=== PATIENT | female | born 1995 | race Two or more races ===

== ENCOUNTER 2024-06-12 16:40 | Inpatient (IN) | payer BC, OTHER ==
[~2024-06-12] VITALS: Ht 162.6 cm; Wt 63.6 kg
[2024-06-12 17:47] LABS: Urine Bacteria None Seen /hpf (None Seen)
[2024-06-12 18:00] LABS: Basophils # (auto) 0.1 10 ^3/uL (0-0.2); Basophils % (auto) 0.7 % (0.0-2.0); Eosinophils # (auto) 0 10 ^3/uL (0-0.8); Eosinophils % (auto) 0.6 % (0.0-7.0); Hematocrit 34.8 % (36.0-46.0); Hemoglobin 11.9 g/dL (12.2-16.2); Lymphocytes # (auto) 1.1 10 ^3/uL (0.4-5.4); Lymphocytes % (auto) 13.4 % (10.0-50.0); Mean Corpuscular Hemoglobin 32.4 pg (28.0-32.0); Mean Corpuscular Hgb Conc. 34.2 g/dL (32.0-36.0); Mean Corpuscular Volume 94.9 fL (80.0-100.0); Monocytes # (auto) 0.5 10 ^3/uL (0-1.3); Monocytes % (auto) 6.3 % (0.0-12.0); Neutrophils # (auto) 6.6 10 ^3/uL (1.6-8.6); Nucleated Red Blood Cells % 0.1 %; Platelet Count (auto) 281 10^3/uL (140-450); Red Blood Cells 3.67 10^6/uL (4.0-5.20); Red Cell Distribution Width 12.7 % (11.8-14.3); White Blood Cell 8.3 10^3/uL (4.4-10.8)
[2024-06-12 18:16] LABS: Urine Blood Negative /uL (Negative); Urine Clarity Clear (Clear); Urine Color Light-Yellow (Yellow); Urine Mucus FEW (None Seen); Urine Protein, UAD Negative (Negative); Urine Urobilinogen Normal (Negative); Urine WBC 3 /hpf (0 - 5)
[2024-06-12 18:16] LABS: Alanine Aminotransferase 18 U/L (7-40); Albumin 4.6 g/dL (3.2-4.8); Alkaline Phosphatase 91 U/L (46-116); Anion Gap 9 (5-15); Aspartate Aminotransferase 17 U/L (13-40); BUN/Creatinine Ratio 18.8 (10.0-20.0); Bilirubin, Total 0.7 mg/dL (0.2-1.0); Blood Urea Nitrogen 15 mg/dL (9-23); Calcium 9.9 mg/dL (8.7-10.4); Carbon Dioxide 24 mmol/L (20-31); Chloride 102 mmol/L (98-107); Potassium 4.1 mmol/L (3.5-5.1)
[2024-06-12 18:19] LABS: Glucose 122 mg/dL (74-106); Sodium 135 mmol/L (136-145)
[2024-06-12 18:29] LABS: Lipase 35 U/L (12-53)
--- NOTE | 2024-06-12 18:52 | ED.PDOC ---
History of Present Illness HPI Comments 29-year-old female who came to ER for rectal pain. Patient does have history of thyroid disease. States at about midnight last night, she started having rectal pain, described as cramping. States she feels nauseated, but denies any vomiting, diarrhea, constipation, or passage of blood. Patient is also complaining of right-sided chest pains described as sharp, intermittent, radiating to her right shoulder and lower ribcage, worsens laying down (during EKG). Patient also states she passed out 5 times earlier today. Chief Complaint: Rectal pain Time Seen by MD: 18:51 Primary Care Provider: CHRISTIANE Reviewed Notes: Nurses Notes Allergies: Coded Allergies: NO KNOWN ALLERGIES (Unverified , 06/12/24) Home Meds Active Scripts Hydrocodone-Acetaminophen (Hydrocodone Bitartrate/AC 5-325 mg) 1 Tab Tab, 1 TAB PO Q6HP PRN, #20 TAB Prov:BUZZ DEL ROSARIO DO 06/13/24 Reported Medications Levothyroxine Sodium (Levothyroxine Sodium) 100 Mcg Tab, 1 TAB PO DAILY 06/13/24 Doxepin Hcl (Doxepin Hcl) 150 Mg Cap, 1 CAP PO DAILY for anxiety 06/13/24 Doxepin Hcl (Doxepin Hcl) 25 Mg Cap, 2 CAP PO DAILY for anxiety 06/13/24 Information Source: Patient Mode of Arrival: Ambulatory Severity: Moderate Timing: Hours Duration: Since onset Prehospital treatment: None Medication Refill: For: Other Review of Systems: REVIEW OF SYSTEMS: No fever, no chills, or fatigue HEENT: No sore throat, no earache, no congestion, no neck pain. Cardiac: (+) chest pain. No palpitations. Lungs: No shortness of breath, no cough. GI: No nausea, no vomiting, no diarrhea, no constipation, no abdominal pain, (+) rectal pain : No dysuria, frequency, or urgency. No hematuria. Musculoskeletal: No joint pain , no joint swelling, no extremity edema. Skin: No rash, no itching. Neuro: No headache, no dizziness, no weakness Vital Signs Vital Signs Date Time Temp Pulse Resp B/P (MAP) Pulse Ox O2 Delivery O2 Flow Rate FiO2 06/12/24 18:00 109 06/12/24 17:53 97.4 16 121/74 (90) 98 Physical Exam General: Awake, alert and oriented. No acute distress. Skin: Skin in warm, dry and intact. Appropriate color for ethnicity. Nailbeds pink with no cyanosis. HEENT: The head is normocephalic and atraumatic. Conjunctivae are clear without exudates or hemorrhage. Sclera is non-icteric. EOM are intact. No signs of nystagmus. Eyelids are normal in appearance without swelling or lesions. Oral mucosa is pink and moist Neck: The neck is supple with normal range of motion. No JVD. Cardiac: Heart rate and rhythm are normal. No murmurs, gallops, or rubs are auscultated. Respiratory: No signs of respiratory distress. Lung sounds are clear in all lobes bilaterally without rales, ronchi, or wheezes. Abdominal: Abdomen is soft, non-tender without distention. Bowel sounds are present and normoactive in all four quadrants. Extremities: Upper and lower extremities are atraumatic in appearance without deformity or edema. Neurological: The patient is awake, alert and oriented to person, place, and time with normal speech. Speech is clear. There is no facial asymmetry. Psychiatric: Appropriate mood and affect. Good judgement and insight. No visual or auditory hallucinations. Past Medical History PAST MEDICAL HISTORY: Thyroid Surgical History: Denies all surgeries CREATIVE SERVICES COORDINATOR History: Denies all CREATIVE SERVICES COORDINATOR Hx Family History Family History: Reviewed,noncontributory to illness Social History Smoker: Non-Smoker Alcohol: Denies ETOH Use Drugs: Denies Drug Use Lives In: Home Was a procedure done? Was a procedure done?: No Differential Dx Considerations may include: Hemorrhoids, anal fissure, constipation, musculoskeletal chest pain, costochondritis, angina, coronary artery disease X-Ray, Labs, Meds, VS Vital Signs Date Time Temp Pulse Resp B/P (MAP) Pulse Ox O2 Delivery O2 Flow Rate FiO2 06/12/24 18:00 109 06/12/24 17:53 97.4 124 16 121/74 (90) 98 Lab Test 06/12/24 20:00 06/12/24 17:49 06/12/24 17:46 Range/Units Troponin I High Sensitivity < 3 L < 3 L </=34 ng/L White Blood Count 8.3 4.4-10.8 10^3/uL Red Blood Count 3.67 L 4.0-5.20 10^6/uL Hemoglobin 11.9 L 12.2-16.2 g/dL Hematocrit 34.8 L 36.0-46.0 % Mean Corpuscular Volume 94.9 80.0-100.0 fL Mean Corpuscular Hemoglobin 32.4 H 28.0-32.0 pg Mean Corpuscular Hemoglobin Concent 34.2 32.0-36.0 g/dL Red Cell Distribution Width 12.7 11.8-14.3 % Platelet Count 281 140-450 10^3/uL Mean Platelet Volume 9.1 6.9-10.8 fL Neutrophils (%) (Auto) 79.0 37.0-80.0 % Lymphocytes (%) (Auto) 13.4 10.0-50.0 % Monocytes (%) (Auto) 6.3 0.0-12.0 % Eosinophils (%) (Auto) 0.6 0.0-7.0 % Basophils (%) (Auto) 0.7 0.0-2.0 % Neutrophils # (Auto) 6.6 1.6-8.6 10 ^3/uL Lymphocytes # (Auto) 1.1 0.4-5.4 10 ^3/uL Monocytes # (Auto) 0.5 0-1.3 10 ^3/uL Eosinophils # (Auto) 0 0-0.8 10 ^3/uL Basophils # (Auto) 0.1 0-0.2 10 ^3/uL Nucleated Red Blood Cells 0.1 % Sodium Level 135 L 136-145 mmol/L Potassium Level 4.1 3.5-5.1 mmol/L Chloride Level 102 98-107 mmol/L Carbon Dioxide Level 24 20-31 mmol/L Anion Gap 9 5-15 Blood Urea Nitrogen 15 9-23 mg/dL Creatinine 0.80 0.550-1.02 mg/dL Glomerular Filtration Rate Calc 102 >90 mL/min BUN/Creatinine Ratio 18.8 10.0-20.0 Serum Glucose 122 H 74-106 mg/dL Lactic Acid Level 1.8 0.4-2.0 mmol/L Calcium Level 9.9 8.7-10.4 mg/dL Total Bilirubin 0.7 0.2-1.0 mg/dL Aspartate Amino Transferase (AST) 17 13-40 U/L Alanine Aminotransferase (ALT) 18 7-40 U/L Alkaline Phosphatase 91 46-116 U/L Total Protein 7.0 5.7-8.2 g/dL Albumin 4.6 3.2-4.8 g/dL Lipase 35 12-53 U/L Beta HCG, Quantitative 15.5 H 1.5-4.2 mIU/mL Urine Color Light-yellow Yellow Urine Clarity Clear Clear Urine pH 6.0 5.0-9.0 Urine Specific [place] 1.010 1.001-1.035 Urine Protein Negative Negative Urine Ketones Negative Negative Urine Blood Negative Negative /uL Urine Nitrite Negative Negative Urine Bilirubin Negative Negative Urine Urobilinogen Normal Negative mg/dL Urine Leukocyte Esterase Negative Negative /uL Urine RBC 4 0 - 4 /hpf Urine WBC 3 0 - 5 /hpf Urine Squamous Epithelial Cells Few <5 /hpf Urine Bacteria None seen None Seen /hpf Urine Mucus Few None Seen Urine Glucose Normal Normal mg/dL Chlamydia trachomatis (MANUELA) Pending Neisseria gonorrhoeae (MANUELA) Pending OB ULTRASOUND <14 WEEKS: HISTORY: Pelvic pain, positive TECHNIQUE: Multiple real-time grayscale sonographic images of the pelvis with duplex Doppler color flow, spectral and M-mode analysis. TRANSDUCERS: Transabdominal FINDINGS: The uterus measures 6.49 x 4.32 x 3.56 cm. Endometrial canal measures 7.58 mm. There is fluid in the cul-de-sac. Right ovary measures 3.7 x 3.6 x 4.5 cm right ovarian volume is 32.52 cc. with normal Doppler color flow Left ovary measures 2.6 x 1.7 x 2.9 cm. Volume of the left ovary is 6.78 cc. with normal Doppler color flow No IUP is seen. There appears to be a large amount of free fluid and debris in the cul-de-sac and right upper quadrant. There is a vascular structure adjacent to the right ovary can not exclude ectopic. IMPRESSION: 1. No IUP. 2. Large amount of fluid in the right adnexa with debris. 3. There is a prominent vascular echogenic structure adjacent to the right ovary. Can not exclude ectopic . ATED BY: DIDIER CROUCH Jr., DO DICTATED DATE/TIME: 06/12/242010 SIGNED BY: PETRUZZO, DIDIER T Jr., DO SIGNED DATE/TIME: 06/12/242010 CC: Time of 1ST Reevaluation: 18:46 Reevaluation 1ST: Unchanged Patient Education/Counseling: Diagnosis, Treatment Family Education/Counseling: Diagnosis, Treatment Departure 1 Departure Time of Disposition: 20:31 Impression: Primary Impression: Hemoperitoneum Additional Impressions: Pelvic pain Elevated serum hCG Disposition: ADMITTED INPATIENT Condition: Stable e-Prescriptions Hydrocodone-Acetaminophen (Hydrocodone Bitartrate/AC 5-325 mg) 1 Tab Tab 1 TAB PO Q6HP PRN, #20 TAB Prov: BUZZ DEL ROSARIO DO 06/13/24 Comments 29-year-old female who presents to the emergency department with rectal pain. Ultrasound suggestive of possible ruptured ectopic with hemoperitoneum . Patient is stable during the ED observation. Taken to OR by Dr. Del Rosario for further evaluation and treatment. 1955: Discussed with Dr. Del Rosario possible ruptured right ectopic on ultrasound. Recommendation is follow up official ultrasound report. Keep Patient NPO. 2030: Discussed US findings with Dr. Del Rosario he will see patient in ED. Extensive evaluation was performed in attempt to identify or rule out: (See differential diagnosis section) The following tests were ordered, and results were reviewed by me: (See diagnostic results section) The following test were independently interpreted by me: N/A I reviewed and agreed with the following test results read by other providers: N/A I reviewed the following notes from the pt's past medical encounters: (None available at this time) Additional information was gathered from interviewing the following independent historians: Patient's significant other at bedside Discussion of management or test interpretation with external physician/other qualified health nurse healthcare manager: Dr. Del Rosario Decision regarding hospitalization or escalation of hospital level of care: Risk and benefits of admission for further treatment of patient's condition was considered. Due to patient's current clinical condition, high risk of decline and poor outcome if discharged and need for further inpatient management and monitoring, patient will be admitted to the hospital. Drug therapy requiring intensive monitoring for toxicity: N/A Parenteral controlled substances: IV Morphine Decision regarding elective major surgery with identified patient or procedure risk factors: N/A Decision regarding emergency major surgery: N/A Decision not to resuscitate or to de-escalate care because of poor prognosis: N/A Critical Care Note Critical Care Time?: Yes (30 min-critical care time only) Critical care comment: Due to a high probability of clinically significant, life threatening deterioration, the patient required my highest level of preparedness to intervene emergently and I personally spent this critical care time directly and personally managing the patient. This critical care time included obtaining a history; examining the patient; pulse oximetry; ordering and review of studies; arranging urgent treatment with development of a management plan; evaluation of patient's response to treatment; frequent reassessment; and, discussions with other providers. This critical care time was performed to assess and manage the high probability of imminent, life-threatening deterioration that could result in multi-organ failure. It was exclusive of separately billable procedures and treating other patients and teaching time. Please see my other sections and the rest of the note for further information on patient assessment and treatment. Stability Stability form required: No Heart Score Heart Score: Heart Score Response (Comments) Value History N/A 0 EKG N/A 0 Age N/A 0 Risk Factors N/A 0 Troponin N/A 0 Total 0 I personally scribed for ANANDA DURON MD ([email or web address]) on 06/12/24 at 18:52. Electronically submitted by Carlos Eduardo Avendaño ([email or web address]). ANANDA DURON MD Jun 12, 2024 18:52
[2024-06-12] MEDS ORDERED: ACETAMINOPHEN 325 MG TAB PO ONE (19:00)
[2024-06-12] MEDS ORDERED: SODIUM CHLORIDE 0.9% 1,000 ML IV ONE (20:00)
--- NOTE | 2024-06-12 20:14 | DVH ---
OB ULTRASOUND <14 WEEKS: HISTORY: Pelvic pain, positive TECHNIQUE: Multiple real-time grayscale sonographic images of the pelvis with duplex Doppler color f low, spectral and M-mode analysis. TRANSDUCERS: Transabdominal FINDINGS: The uterus measures 6.49 x 4.32 x 3.56 cm. Endometrial canal measures 7.58 mm. There is fluid in the cul-de-sac. Right ovary measures 3.7 x 3.6 x 4.5 cm right ovarian volume is 32.52 cc. with normal Doppler color f low Left ovary measures 2.6 x 1.7 x 2.9 cm. Volume of the left ovary is 6.78 cc. with normal Doppler colo r flow No IUP is seen. There appears to be a large amount of free fluid and debris in the cul-de-sac and rig ht upper quadrant. There is a vascular structure adjacent to the right ovary can not exclude ectopic. IMPRESSION: 1. No IUP. 2. Large amount of fluid in the right adnexa with debris. 3. There is a prominent vascular echogenic structure adjacent to the right ovary. Can not exclude ect opic .
[2024-06-12] MEDS ORDERED: ONDANSETRON HCL 4 MG/2 ML VIAL IV ONE ×2 (20:45→21:45)
[2024-06-12] MEDS ORDERED: MORPHINE SULFATE INJ 2 MG/ml SYRG IV ONE (20:45)
[2024-06-12] MEDS ORDERED: LACTATED RINGER'S 1,000 ML IV SCH (20:45)
[2024-06-12] MEDS ORDERED: ceFAZolin 2 GM/D5W50ml 50 ML IV ONE (20:45)
--- NOTE | 2024-06-12 21:32 | DVHHP2 ---
FISH RECEIVER CC & HPI Date Date of Admission: Jun 12, 2024 Chief Complaints: Reason for admission: Acute pelvic pain, suspected ruptured ectopic History of Present Complaints History of Present Complaints 29y G2Po TAB1 LMP 05/17/24 EGA 3w5d Admitted via ER with acute pelvic pain, rectal pain and shoulder pain x 24 hr. Endorses syncope several times today. Denies N/V fever Complains of rectal pain, denies rectal bleeding, constipation. Patient had HCG+ in ER (HCG quant 15) but pelvic US reveals moderate free fluid and right adnexal mass suspicious for ectopic Past Medical History Cardiac: No pertinent Hx Pulmonary: No pertinent Hx Central Nervous System: No pertinent Hx GI: No pertinent Hx Hemotology/Oncology: No pertinent Hx Hepatobiliary: No pertinent Hx Psychiatric: No pertinent Hx Musculoskeletal: No pertinent Hx Rheumotologic: No pertinent Hx Infectious Disease: No peritnent Hx ENT: No pertinent Hx Renal/: No pertinent Hx Endocrine: Hypothyroidism Dermatology: No pertinent Hx Others Anxiety, depression Past Surgical History: No pertinent Hx FISH RECEIVER History FISH RECEIVER History FISH RECEIVER History: Last PAP > x 5 yr ago Denies history of STI, denies history of Abnormal PAP Sexually active, Monogamous x 2 years Allergies: Coded Allergies: NO KNOWN ALLERGIES (Unverified , 06/12/24) Current Medications Current Medications Medications (Trade) Dose Ordered Sig/Jaclyn Route PRN Reason Start Time Stop Time Status Last Admin Lactated Ringer's 1,000 ml @ 125 mls/hr Q8H IV 06/12/24 20:45 Social History Denies EtOH, Drug use or tobacco use Review of Systems Constitutional: Weakness Ears, Nose, & Throat: No symptom reported Eyes: No symptom reported Pulmonary/Respiratory: Pleuritic Chest Pain Cardiovascular: Lt [place] Gastrointestinal: Abdominal Pain Genitourinary: No symptom reported Musculoskeletal: No symptom reported Skin: No symptom reported Psychiatric: No symptom reported Endocrine: No symptom reported Hemotologic/Lymphatic: No symptom reported All Other Systems Neuro: + Syncope Physical Exam Physical Exam Vitals: Vital Signs Date Time Temp Pulse Resp B/P (MAP) Pulse Ox O2 Delivery O2 Flow Rate FiO2 06/12/24 18:00 109 06/12/24 17:53 97.4 16 121/74 (90) 98 HEENT: NCAT Heart: Rhythm Normal Lungs: Clear Abdomen: Soft Extremities: Normal Reflexes: Normal Parking Cashier/Pelvic Exam: Not done Assessment and Plan Plan Assessment and Plan: 1. Acute abdominal pain with moderate hemoperitoneum seen on US 2. Suspected ruptured ectopic vs hemorrhagic ovarian cyst Plan: Operative laparoscopy, removal of ectopic , possible unilateral (left vs right) salpingectomy vs salpingo-oophorectomy, possible laparotomy, evacuation of hemoperitoneum Patient does not want to disrupt a potential "normal " declined D&C procedure. Risks of pain, scar , bleeding, infection, possible blood transfusion. Risks of possible injury to bowel, bladder, vessels, adjacent organs all discussed with patient and informed consent obtained. Date of Service: Jun 12, 2024 Billing Provider: BUZZ DEL ROSARIO DO Common Visit Codes: [id number] INP/OBS CARE(HIGH) BUZZ DEL ROSARIO DO Jun 12, 2024 21:32
[2024-06-12] MEDS ORDERED: SUCCINYLCHOLINE CHLORIDE 20 MG/ML 10ML VIAL IV ONE (21:36)
[2024-06-12] MEDS ORDERED: fentaNYL CITRATE 100 MCG/2 ML VL ONE (21:36)
[2024-06-12] MEDS ORDERED: MIDAZOLAM HCL 2MG/2ML 2ml VIAL (1mg/ml) ONE (21:37)
[2024-06-12] MEDS ORDERED: ONDANSETRON HCL 4 MG/2 ML VIAL ONE (21:37)
[2024-06-12] MEDS ORDERED: DexAMETHasone SOD PHOS 10MG/1ML VIAL INJ ONE (21:37)
[2024-06-12] MEDS ORDERED: PROPOFOL 10 MG/ML 20 ML IV ONE (21:37)
[2024-06-12] MEDS ORDERED: ROCURONIUM 10MG/ML 10ML VIAL IV ONE (21:37)
[2024-06-12] MEDS ORDERED: LIDOCAINE 2% (LOCAL ANESTH.) PF 5ml SDV ONE (21:39)
[2024-06-12] MEDS ORDERED: fentaNYL CITRATE 100 MCG/2 ML VL IV PRN (21:45)
[2024-06-12] MEDS ORDERED: HYDROmorphone HCL 2 MG/ML VL/or syr IV PRN (21:45)
[2024-06-12 21:55] VITALS: PULSE 132; RESP 20; O2SAT 99
[2024-06-12] MEDS ORDERED: ceFAZolin 2 GM/D5W100ml 100 ML IV ONE (22:05)
[2024-06-12] MEDS ORDERED: HYDROmorphone HCL 2 MG/ML VL/or syr ONE (23:38)
[2024-06-12] MEDS ORDERED: SUGAMMADEX 200mg/2ml Vial (100MG/ML) IV ONE (23:47)
[2024-06-12] MEDS: LIDOCAINE W/ EPINEPHRINE 1% 20ML VIAL ONE (23:49)
[2024-06-13 00:26] VITALS: PULSE 109; RESP 8; O2SAT 100
[2024-06-13] MEDS ORDERED: IBUPROFEN 600 MG TAB PO PRN (00:30)
[2024-06-13] MEDS ORDERED: ONDANSETRON ODT 4 MG TAB PO PRN (00:30)
--- NOTE | 2024-06-13 01:14 | DVHOP ---
DATE OF SURGERY: 06/13/2024 PREOPERATIVE DIAGNOSES: * Acute abdominal pain with hemoperitoneum. * Suspected ruptured ovarian cyst versus ectopic . FINAL DIAGNOSES: * Acute abdominal pain with hemoperitoneum. * Ruptured hemorrhagic corpus luteal cyst of the right ovary. SURGEON: Adan Melchor DO WIRE SETTER: Darin Veronica NP ANESTHESIOLOGIST: Brijesh Henriquez CRNA. PROCEDURES PERFORMED: Pelvic exam under anesthesia, operative laparoscopy, right ovarian cystectomy, evacuation of hemoperitoneum. DESCRIPTION OF FINDINGS: A normal-sized uterus, normal bilateral fallopian tubes and normal left ovary. The right ovary contained a 3 cm ruptured ovarian cyst with clot. There was approximately 400-500 mL of hemoperitoneum in the pelvis and up to the right upper quadrant above the liver. There was an adherent blood clot to the right ovary. There was no definite ectopic . Normal bowel and intra-abdominal organs otherwise. TECHNICAL PROCEDURE: After informed consent was obtained, the patient was taken to the operating room where she underwent smooth induction with general anesthesia. The patient was placed in the dorsal lithotomy position in Robert stirrups. The vagina, perineum and abdomen were thoroughly prepped, and the patient sterilely draped in usual fashion. A pelvic exam was then performed under anesthesia with the above-noted findings. A weighted speculum was placed in the patient's vagina. The anterior lip of the cervix was grasped with a single tooth tenaculum. A small acorn uterine manipulator was placed just at the endocervix and attached to the tenaculum externally to manipulate the uterus. The uterine cavity was not entered. A transurethral Nath was then placed. Next, all instrumentation was removed from the patient's vagina. Attention was then placed to the abdomen, where a 5 mm vertical incision was made at the base of the umbilicus. The abdominal wall was tented and a Veress needle introduced in usual fashion. Intraperitoneal placement was confirmed by aspiration and by the hanging water drop test. Carbon dioxide gas was infused and pneumoperitoneum obtained. A 5 mm Optiview trocar was then used to place in umbilical port under direct visualization. Intraperitoneal placement was confirmed directly with the laparoscope. A 12 mm port was inserted to the left of midline under direct visualization and a 5 mm port was inserted to the right of midline under direct visualization. These entries were atraumatic. Survey of the abdomen and pelvis revealed the above-noted findings. There was a moderate amount of hemoperitoneum in the pelvis and extending all the way to the right upper quadrant, up to the liver and under the diaphragm. Using a suction device, all the blood and hemoperitoneum was evacuated. Approximately 350 mL were collected plus organized blood clots. The bilateral fallopian tubes and ovaries were inspected with the above-noted findings. The right ovary contained an actively bleeding cyst. This was removed with blunt dissection and a cystectomy performed. The cyst wall was placed into an EndoCatch bag and retrieved. The specimen was submitted to pathology. The ovary was then cauterized with monopolar cautery to obtain hemostasis. Next, the abdomen was thoroughly irrigated with sterile saline. All the fluid and blood was suctioned from the patient's abdomen. I then placed Surgiflo over the right ovary for added hemostasis. The intra-abdominal pressures were reduced. The ovary was inspected and hemostasis was confirmed. No active bleeding noted. At this point, I proceeded to close the 12 mm fascial defect in the left lower quadrant using the Michael-Corby device. A suture of 0 Vicryl was used to approximate the fascia. This was airtight and following this, the additional 5 mm trocars were removed under visualization. The pneumoperitoneum was all removed, then proceeded to close the skin incisions with 3-0 Monocryl in subcuticular fashion. The three skin incisions were injected with 1% lidocaine with epinephrine, approximately 20 mL of local anesthetic were used. The skin incisions were then covered with Dermabond. The transurethral Nath was removed and the cervical manipulator was removed with no vaginal bleeding noted. The patient was taken out of lithotomy position, awakened, and taken to recovery room in stable condition. INTRAOPERATIVE COMPLICATIONS: None. ESTIMATED BLOOD LOSS: Less than 15 mL plus approximately 500 mL of hemoperitoneum. POSTOPERATIVE CONDITION: Stable. SPECIMENS: Right ovarian cyst. MEDICATION: The patient received 2 grams of Ancef prior to skin incision. Adan Melchor DO CG/ANDREA TID: [id number] RECEIPT: [id number] MTDD
[2024-06-13 02:00] VITALS: BP 110/73; PULSE 98; RESP 20; TEMP 98.5; O2SAT 98
[2024-06-13 02:39] LABS: Basophils # (auto) 0 10 ^3/uL (0-0.2); Basophils % (auto) 0.2 % (0.0-2.0); Eosinophils # (auto) 0 10 ^3/uL (0-0.8); Hematocrit 30.2 % (36.0-46.0); Hemoglobin 10.2 g/dL (12.2-16.2); Lymphocytes # (auto) 0.4 10 ^3/uL (0.4-5.4); Lymphocytes % (auto) 4.2 % (10.0-50.0); Mean Corpuscular Hgb Conc. 33.6 g/dL (32.0-36.0); Mean Corpuscular Volume 95.3 fL (80.0-100.0); Monocytes # (auto) 0.1 10 ^3/uL (0-1.3); Neutrophils # (auto) 8.4 10 ^3/uL (1.6-8.6); Neutrophils % (auto) 94.6 % (37.0-80.0); Platelet Count (auto) 197 10^3/uL (140-450); Red Blood Cells 3.17 10^6/uL (4.0-5.20); Red Cell Distribution Width 12.5 % (11.8-14.3); White Blood Cell 8.9 10^3/uL (4.4-10.8)
[2024-06-13] MEDS: ACETAMINOPHEN 325 MG TAB PO PRN (02:52)
[2024-06-13] MEDS ORDERED: DOXE25CA2 PO (03:01)
[2024-06-13] MEDS ORDERED: [UNRECOGNIZED DRUG - CODE] PO (03:01)
[2024-06-13] MEDS ORDERED: LEVO100T8 PO (03:01)
[2024-06-13 05:00] VITALS: BP 105/72; PULSE 111; RESP 20; TEMP 98.4; O2SAT 98
--- NOTE | 2024-06-13 07:07 | ECG ---
[facility] Test Date: 2024-06-12 Test Time: 17:42:26 Pat Name: JUVENTION KAN PETRONADepartment: ER Room: 0217 Gender: F Sort Line Worker: NICK : [id number] Requested By: ZULMA PRYOR Order Number: [id number] Reading MD: Measurements Intervals [place] Rate: 109 P: 67 MN: 109 QRS: 39 QRSD: 80 T: 57 QT: 315 QTc: 425 Interpretive Statements Sinus tachycardia with irregular rate Please click the below link to view image of tracing.
[2024-06-13] MEDS: HYDROcodone-ACET 10/325MG TAB PO PRN (08:06)
[2024-06-13] MEDS ORDERED: HYDR-4902 PO (08:28)
--- NOTE | 2024-06-13 08:33 | DVHDS2 ---
Physician Discharge Progress N Final Diagnosis: ruptured rt ovarian cyst with hemoperitoneum, early Operations or Procedures: Operations or Procedures Laparoscopy evacuation of hemoperitoneum rt ovarian cystectomy Condition on Discharge: Stable Disposition: Home Discharge Instructions: Diet: Regular Activity: Light activity Follow Up/Referral: [address] Del Rosario Medications: [place] 5mg pRN pain Follow Up Care: Discharge Statement: "Patient was advised to return to the ER or call 911 if any headaches, dizziness, shortness of breath, chest pain, abdominal pain, bleeding, fevers, or worsening of medical condition. Patient was counseled about treatment plan, medications, possible side effects, patientverbalized understanding. All questions were answered to the best of my ability. This discharge took greater then 30 minutes in planning, reviewing documentation, counseling the patient, and discussing with other team members." BUZZ DEL ROSARIO DO Jun 13, 2024 08:33
[2024-06-13 08:54] LABS: Basophils # (auto) 0 10 ^3/uL (0-0.2); Eosinophils # (auto) 0 10 ^3/uL (0-0.8); Hematocrit 30.5 % (36.0-46.0); Hemoglobin 10.5 g/dL (12.2-16.2); Lymphocytes # (auto) 0.3 10 ^3/uL (0.4-5.4); Lymphocytes % (auto) 3.3 % (10.0-50.0); Mean Corpuscular Hemoglobin 32.9 pg (28.0-32.0); Mean Corpuscular Hgb Conc. 34.5 g/dL (32.0-36.0); Mean Corpuscular Volume 95.5 fL (80.0-100.0); Monocytes # (auto) 0.2 10 ^3/uL (0-1.3); Neutrophils # (auto) 9.7 10 ^3/uL (1.6-8.6); Neutrophils % (auto) 94.7 % (37.0-80.0); Platelet Count (auto) 216 10^3/uL (140-450); Red Cell Distribution Width 12.5 % (11.8-14.3); White Blood Cell 10.3 10^3/uL (4.4-10.8)
[2024-06-13 09:00] VITALS: BP 100/87; PULSE 113; TEMP 98.7; O2SAT 20
[2024-06-13 11:35] VITALS: BP 100/87; PULSE 97; RESP 20; TEMP 98.7; O2SAT 97
[2024-06-16 07:07] LABS: Chlamydia Trachomatis, NAA Negative (Negative); Neisseria gonorrhoeae, NAA Negative (Negative)
== END 2024-06-13 12:30 | disposition home or self-care (01) | DRG 742 ==
LOC: ER 16:40 → OVERFLOW 20:37 → CENTRAL 06-13 01:44
PROVIDERS: ADMIT Obstetrics & Gynecology; ATTEND Obstetrics & Gynecology
PROC: 0W9G4ZZ Drainage of Peritoneal Cavity, Percutaneous Endoscopic Approach (ICD-10-PCS; 2024-06-12)
PROC: 0UB04ZZ Excision of Right Ovary, Percutaneous Endoscopic Approach (ICD-10-PCS; principal; 2024-06-12 23:06)
DX: N83.11 Corpus luteum cyst of right ovary (principal); K66.1 Hemoperitoneum; E03.9 Hypothyroidism, unspecified; F41.9 Anxiety disorder, unspecified; F32.A Depression, unspecified
CPT/HCPCS: 36415; 76801; 76817; 80053; 81001; 83605; 83690; 84484; 84702; 85025; 86850; 86900; 86901; 93005; G0378; J0330; J1100; J2003; J2250; J2405; J2704